=== PATIENT | female | born 1975 | race African-American/Black ===

== ENCOUNTER 2022-11-01 11:43 | Emergency (ER) | payer OTHER ==
[2022-11-01 11:55] VITALS: BP 130/83; PULSE 85; RESP 18; TEMP 98.2; BMI 29.2
== END 2022-11-01 13:27 | disposition home or self-care (01) ==
LOC: JERFT 11:43
DX: S92.514A Nondisplaced fracture of proximal phalanx of right lesser toe(s), initial encounter for closed fracture (principal); S90.121A Contusion of right lesser toe(s) without damage to nail, initial encounter; W22.8XXA Striking against or struck by other objects, initial encounter
CPT/HCPCS: 73660-TC-FY; 99283-25